=== PATIENT | female | born 1965 | race Caucasian/White ===

== ENCOUNTER 2019-12-17 15:37 | Emergency (ER) | payer SELFPAY ==
[2019-12-17 15:38] VITALS: BP 130/83; PULSE 65; RESP 16; O2SAT 99; BMI 22.4
--- NOTE | 2019-12-17 15:50 | ED_ITS ---
Documented by User: Malcolm Aranda DO 12/20/19 08:13 HPI - Chest Pain General: Chief Complaint: Chest Pain Stated Complaint: CP, TAKEN SISTERS MEDS FOR CP Time Seen by Provider: 12/17/19 15:43 History of Present Illness: HPI narrative: 54-year-old female presents emergency room with complaint of chest pain nonradiating she had some shortness of breath with it as well she is extremely anxious that she did take her sisters nitro based medicine from her description sounds like it was isosorbide mononitrate. She was unsure of the dose. She did not take any sublingual nitro. She is not previously had any short episodes of extreme chest pain this episode came on while at rest she had been having some palpitations and generalized discomfort and was set up to see a local nurse practitioner later this week. She denies any recent fever sweats chills nausea vomiting diarrhea cough or cold symptoms. MD complaint: chest heaviness and chest discomfort Onset (ago): hour(s) Timing of current episode: episodic Prior episodes: Yes Onset: during rest Pain location: left chest Pain radiation: none Severity: mild Quality: tightness, aching and heaviness Relieving factors: nothing Exacerbating factors: nothing Associated symptoms: Deny abdominal pain, dyspnea, fever(s), nausea or vomiting Review of Systems Const: Denies: fever, chills, body aches, change in appetite, fatigue or malaise ENMT: Denies: throat pain, ear pain, nasal discharge or nasal congestion Card: Reports: chest pain; Denies: edema, shortness of breath on exertion or shortness of breath when lying down Resp: Denies: shortness of breath, productive cough or non-productive cough GI: Denies: abdominal pain, nausea, vomiting, vomiting blood, coffee grounds in vomit, diarrhea, constipation, bloating, blood in stool or black tarry stool : Denies: flank pain, difficulty urinating, painful urination, urinary frequency or urinary urgency Skin/Breast: Denies: rash or itching PFSH ED PFSH: Medical History (Updated 12/19/19 @ 17:02 by Fabi Iverson MD) Family history of coronary artery disease occurring prior to 55 years of age Trigeminal neuralgia Family History (Updated 12/19/19 @ 13:23 by Fabi Iverson MD) Mother Stroke Father Stroke Sister CAD (coronary artery disease), Onset Age: 50 stent Social History Smoking and tobacco status: never smoked Physical Exam Const: COMMON NORMALS: no apparent distress GENERAL APPEARANCE: cooperative and comfortable ORIENTATION/CONSCIOUSNESS: Yes awake, Yes oriented to person, Yes oriented to place and Yes oriented to time HENMT: COMMON NORMALS: normocephalic, head/scalp atraumatic, hearing grossly normal bilaterally, external ears normal, EAC's normal, TM's normal bilaterally, nasal mucous membranes and turbinates normal, moist oral mucous membranes and oropharynx normal HEAD & SCALP: normocephalic and atraumatic NOSE: nasal mucous membranes and turbinates normal EXTERNAL EAR: Yes external ears normal EXTERNAL AUDITORY CANAL: EAC's normal TYMPANIC MEMBRANE: TM's normal bilaterally Eye: COMMON NORMALS: PERRL, EOMs intact bilaterally, conjunctivae normal and no scleral icterus CONJUNCTIVA: Yes conjunctivae normal PUPIL: Yes PERRL Neck/C-Spine: COMMON NORMALS: full ROM, no lymphadenopathy, supple and no JVD Lymph: LYMPHATIC: no lymphadenopathy noted and no lymphedema noted Resp: COMMON NORMALS: normal respiratory effort, no retractions, no use of accessory muscles and clear to auscultation bilaterally AUSCULTATION: clear to auscultation bilaterally Cardio: COMMON NORMALS: no JVD, regular rate, regular rhythm and no murmurs RATE: regular rate RHYTHM: regular rhythm GI: COMMON NORMALS: soft to palpation and no hepatosplenomegaly AUSCULTAT ION: Yes normoactive bowel sounds PALPATION: Yes soft, No tender, No guarding and Yes no hepatosplenomegaly Extremity: COMMON NORMALS: normal to inspection, normal capillary refill, no clubbing, cyanosis or edema, no calf tenderness and no pedal edema Neuro: SENSORIUM/ORIENTATION: Yes oriented to person, Yes oriented to place and Yes oriented to time Skin: COMMON NORMALS: no rashes or lesions noted GENERAL SKIN EXAM: no rashes or lesions noted Course Vital Signs: Vital signs: Vital Signs Pulse Rate 62 12/17/19 20:17 Respiratory Rate 18 12/17/19 20:17 Blood Pressure 106/70 12/17/19 20:17 Pulse Oximetry 98 12/17/19 20:17 MDM - Chest Pain MDM Narrative: Medical decision making narrative: Care transferred to Dr. Murphy at change of shift he will make final disposition Lab Data: Labs: Lab Results 12/17/19 12/17/19 12/17/19 Range/Units 16:06 16:06 16:06 WBC 4.8 (4.0-10.0) 10^3/ uL RBC 4.13 (4.1-5.3) 10^6/u L Hgb 12.8 (11.5-15.3) g/dL Hct 38.8 (37.0-47.0) % MCV 93.9 (81-99) fL MCH 31.0 (28.0-34.0) pg MCHC 33.0 (30.0-36.0) g/dL RDW 12.1 (12.1-15.1) % Plt Count 186 (130-400) 10^3/c mm MPV 11.3 H (7.4-10.4) fL Neut % (Auto) 51.6 % Lymph % (Auto) 39.3 % [place] % (Auto) 6.6 % Eos % (Auto) 1.7 % Baso % (Auto) 0.6 % Neut # (Auto) 2.5 (1.8-7.7) 10^3/u L Lymph # (Auto) 1.9 (0.8-4.8) 10^3/u L [place] # (Auto) 0.3 (0.2-0.9) 10^3/u L Eos # (Auto) 0.1 (0.0-0.8) 10^3/u L Baso # (Auto) 0.0 (0.0-0.1) 10^3/u L Nucleated RBC % (a uto) 0 % Nucleated RBCs # 0.0 /100WBC Sodium 141 (136-145) mmol/L Potassium 4.1 (3.5-5.1) mmol/L Chloride 104 (98-107) mmol/L Carbon Dioxide 24 (22-29) mmol/L Anion Gap 17.1 (5-19) BUN 10 (6-20) mg/dL Creatinine 0.7 (0.5-0.9) mg/dL GFR Calculation 86.6 L (90-130) mL/min Glucose 99 (65-115) mg/dL Calculated Osmolal ity 288 (285-295) mOsm/k g Calcium 10.0 (8.5-10.5) mg/dL Total Bilirubin 0.2 (0.15-1.2) mg/dL AST 18 (0-32) U/L ALT 12 (0-33) U/L Alkaline Phosphata se 50 (35-105) IU/L Troponin T Baselin e 6 (0-10) ng/mL Troponin T 120 Min [place] (0-10) ng/mL Delta Troponin T (0-10) ABS# Total Protein 6.7 (6.6-8.7) g/dL Albumin 4.2 (3.5-5.2) g/dL Globulin 2.5 (1.3-4.6) g/dL Lipase (13-60) U/L Urine Color (Yellow) Urine Appearance (CLEAR) Urine pH (5-7) Ur Specific Gravit y (1.005-1.030) Urine Protein (Negative) Urine Glucose (UA) (Normal) Urine Ketones (Negative) Urine Blood (Negative) Urine Nitrate (Negative) Urine Bilirubin (NEGATIVE) Urine Urobilinogen (Negative) mg/dL Ur Leukocyte [place] (Negative) 12/17/19 12/17/19 12/17/19 Range/Units 16:32 18:20 18:20 WBC (4.0-10.0) 10^3/ uL RBC (4.1-5.3) 10^6/u L Hgb (11.5-15.3) g/dL Hct (37.0-47.0) % MCV (81-99) fL MCH (28.0-34.0) pg MCHC (30.0-36.0) g/dL RDW (12.1-15.1) % Plt Count (130-400) 10^3/c mm MPV (7.4-10.4) fL Neut % (Auto) % Lymph % (Auto) % [place] % (Auto) % Eos % (Auto) % Baso % (Auto) % Neut # (Auto) (1.8-7.7) 10^3/u L Lymph # (Auto) (0.8-4.8) 10^3/u L [place] # (Auto) (0.2-0.9) 10^3/u L Eos # (Auto) (0.0-0.8) 10^3/u L Baso # (Auto) (0.0-0.1) 10^3/u L Nucleated RBC % (a uto) % Nucleated RBCs # /100WBC Sodium (136-145) mmol/L Potassium (3.5-5.1) mmol/L Chloride (98-107) mmol/L Carbon Dioxide (22-29) mmol/L Anion Gap (5-19) BUN (6-20) mg/dL Creatinine (0.5-0.9) mg/dL GFR Calculation (90-130) mL/min Glucose (65-115) mg/dL Calculated Osmolal ity (285-295) mOsm/k g Calcium (8.5-10.5) mg/dL Total Bilirubin (0.15-1.2) mg/dL AST (0-32) U/L ALT (0-33) U/L Alkaline Phosphata se (35-105) IU/L Troponin T Baselin e (0-10) ng/mL Troponin T 120 Min [place] 6.00 (0-10) ng/mL Delta Troponin T 0 (0-10) ABS# Total Protein (6.6-8.7) g/dL Albumin (3.5-5.2) g/dL Globulin (1.3-4.6) g/dL Lipase 30 (13-60) U/L Urine Color Yellow (Yellow) Urine Appearance Clear (CLEAR) Urine pH 7 (5-7) Ur Specific Gravit y 1.000 L (1.005-1.030) Urine Protein Neg (Negative) Urine Glucose (UA) Norm (Normal) Urine Ketones Negative (Negative) Urine Blood Neg (Negative) Urine Nitrate Negative (Negative) Urine Bilirubin Neg (NEGATIVE) Urine Urobilinogen Norm (Negative) mg/dL Ur Leukocyte [place] Negative (Negative) Discharge Plan Discharge Patient Disposition: Home, Self-Care Clinical Impression: Chest pain Qualifiers: Chest pain type: unspecified Qualified Code(s): R07.9 - Chest pain, unspecified Condition: Stable Prescriptions: No Action nitroglycerin 0.4 mg tablet, sublingual 0.4 mg SUBLINGUAL Q5M PRN (Reason: chest pain) Qty: 25 RF: 1 Multiple Vitamins Tablet 1 tab PO DAILY RF: 0 Aspir-81 81 mg Tablet,Delayed Release (Dr/Ec) 81 mg PO DAILY RF: 0 Widen-3 350 mg-235 mg- 90 mg-597 mg Capsule,Delayed Release(Dr/Ec) 1 cap PO DAILY RF: 0 [place] Treatment See Rx Instructions .ROUTE .COMPLEX RF: 0 grape seed extract 1 tab PO DAILY RF: 0 vitamin E 1 tab PO DAILY RF: 0 Discharge Orders: Discharge Order (Routine); Ordered 12/17/19 Ordered By: Renate Gupta Referrals: Fabi Iverson MD [Physician] - (Follow-up with Dr. Iverson on Tuesday as scheduled.) Discharge Diet: Advance as tolerated Discharge Activity: Increase activity as tolerated Patient Instructions: Chest Pain (ED) Activity Restrictions/Additional Instructions: Please return to the ER immediately for any of the signs or symptoms listed on your discharge instruction sheets, worsening/changing of your symptoms, you are not getting better as quickly as expected, or for ANY other cause or concerns. You have been offered further evaluation and care including admission to the hospital for stress testing but have declined. If your symptoms return or they change/worsen in any way you are more than welcome to return to the ER for recheck and further evaluation and care. Be certain to follow-up with Dr. Iverson on Tuesday for recheck. Again if your symptoms return or change in any way you are encouraged and welcomed to return to the ER for recheck. Discharge Date/Time: 12/17/19 20:18 Sign Out Sign Out Data: Patient Sign Out occurred on 12/17/19 at 18:08. Patient's care was discussed, and care was transferred from to Renate Gupta. Coding Level of Care Code ED Chair Mender for Chg Fwd Exam Comprehensive Documented by User: Renate Gupta 12/17/19 23:20 HPI - Chest Pain General: Chief Complaint: Chest Pain Stated Complaint: CP, TAKEN SISTERS MEDS FOR CP Time Seen by Provider: 03/30/20 15:43 PFSH ED PFSH: Medical History (Updated 12/19/19 @ 17:02 by Fabi Iverson MD) Family history of coronary artery disease occurring prior to 55 years of age Trigeminal neuralgia Family History (Updated 12/19/19 @ 13:23 by Fabi Iverson MD) Mother Stroke Father Stroke Sister CAD (coronary artery disease), Onset Age: 50 stent Social History Smoking and tobacco status: never smoked Course Vital Signs: Vital signs: Vital Signs Pulse Rate 62 12/17/19 20:17 Respiratory Rate 18 12/17/19 20:17 Blood Pressure 106/70 12/17/19 20:17 Pulse Oximetry 98 12/17/19 20:17 MDM - Chest Pain MDM Narrative: Medical decision making narrative: Care assumed by me at change of shift from Dr. Aranda. Please see his note for his history, physical exam and medical decision-making notes. Patient has 2 normal EKGs and 2 troponins which are as low as possible on our scale. Patient has had constant chest pain for over 6 hours which should rule out a cardiac case as a cause for her pain. The patient had a heart score of 3 which per the hospital chest pain pathway should be okay with discharge. Nonetheless I have offered admit her to the hospital for stress testing but she declines. She has an appointment with Dr. Iverson on Tuesday for evaluation and she plans to try to make that appointment. She understands that she is welcome to return here should she change her mind and she is leaving against my advice. Lab Data: Attestation: I reviewed the patient's lab results. Labs: Lab Results 12/17/19 12/17/19 12/17/19 Range/Units 16:06 16:06 16:06 WBC 4.8 (4.0-10.0) 10^3/ uL RBC 4.13 (4.1-5.3) 10^6/u L Hgb 12.8 (11.5-15.3) g/dL Hct 38.8 (37.0-47.0) % MCV 93.9 (81-99) fL MCH 31.0 (28.0-34.0) pg MCHC 33.0 (30.0-36.0) g/dL RDW 12.1 (12.1-15.1) % Plt Count 186 (130-400) 10^3/c mm MPV 11.3 H (7.4-10.4) fL Neut % (Auto) 51.6 % Lymph % (Auto) 39.3 % [place] % (Auto) 6.6 % Eos % (Auto) 1.7 % Baso % (Auto) 0.6 % Neut # (Auto) 2.5 (1.8-7.7) 10^3/u L Lymph # (Auto) 1.9 (0.8-4.8) 10^3/u L [place] # (Auto) 0.3 (0.2-0.9) 10^3/u L Eos # (Auto) 0.1 (0.0-0.8) 10^3/u L Baso # (Auto) 0.0 (0.0-0.1) 10^3/u L Nucleated RBC % (a uto) 0 % Nucleated RBCs # 0.0 /100WBC Sodium 141 (136-145) mmol/L Potassium 4.1 (3.5-5.1) mmol/L Chloride 104 (98-107) mmol/L Carbon Dioxide 24 (22-29) mmol/L Anion Gap 17.1 (5-19) BUN 10 (6-20) mg/dL Creatinine 0.7 (0.5-0.9) mg/dL GFR Calculation 86.6 L (90-130) mL/min Glucose 99 (65-115) mg/dL Calculated Osmolal ity 288 (285-295) mOsm/k g Calcium 10.0 (8.5-10.5) mg/dL Total Bilirubin 0.2 (0.15-1.2) mg/dL AST 18 (0-32) U/L ALT 12 (0-33) U/L Alkaline Phosphata se 50 (35-105) IU/L Troponin T Baselin e 6 (0-10) ng/mL Troponin T 120 Min [place] (0-10) ng/mL Delta Troponin T (0-10) ABS# Total Protein 6.7 (6.6-8.7) g/dL Albumin 4.2 (3.5-5.2) g/dL Globulin 2.5 (1.3-4.6) g/dL Lipase (13-60) U/L Urine Color (Yellow) Urine Appearance (CLEAR) Urine pH (5-7) Ur Specific Gravit y (1.005-1.030) Urine Protein (Negative) Urine Glucose (UA) (Normal) Urine Ketones (Negative) Urine Blood (Negative) Urine Nitrate (Negative) Urine Bilirubin (NEGATIVE) Urine Urobilinogen (Negative) mg/dL Ur Leukocyte [place] ase (Negative) 12/17/19 12/17/19 12/17/19 Range/Units 16:32 18:20 18:20 WBC (4.0-10.0) 10^3/ uL RBC (4.1-5.3) 10^6/u L Hgb (11.5-15.3) g/dL Hct (37.0-47.0) % MCV (81-99) fL MCH (28.0-34.0) pg MCHC (30.0-36.0) g/dL RDW (12.1-15.1) % Plt Count (130-400) 10^3/c mm MPV (7.4-10.4) fL Neut % (Auto) % Lymph % (Auto) % [place] % (Auto) % Eos % (Auto) % Baso % (Auto) % Neut # (Auto) (1.8-7.7) 10^3/u L Lymph # (Auto) (0.8-4.8) 10^3/u L [place] # (Auto) (0.2-0.9) 10^3/u L Eos # (Auto) (0.0-0.8) 10^3/u L Baso # (Auto) (0.0-0.1) 10^3/u L Nucleated RBC % (a uto) % Nucleated RBCs # /100WBC Sodium (136-145) mmol/L Potassium (3.5-5.1) mmol/L Chloride (98-107) mmol/L Carbon Dioxide (22-29) mmol/L Anion Gap (5-19) BUN (6-20) mg/dL Creatinine (0.5-0.9) mg/dL GFR Calculation (90-130) mL/min Glucose (65-115) mg/dL Calculated Osmolal ity (285-295) mOsm/k g Calcium (8.5-10.5) mg/dL Total Bilirubin (0.15-1.2) mg/dL AST (0-32) U/L ALT (0-33) U/L Alkaline Phosphata se (35-105) IU/L Troponin T Baselin e (0-10) ng/mL Troponin T 120 Min [place] 6.00 (0-10) ng/mL Delta Troponin T 0 (0-10) ABS# Total Protein (6.6-8.7) g/dL Albumin (3.5-5.2) g/dL Globulin (1.3-4.6) g/dL Lipase 30 (13-60) U/L Urine Color Yellow (Yellow) Urine Appearance Clear (CLEAR) Urine pH 7 (5-7) Ur Specific Gravit y 1.000 L (1.005-1.030) Urine Protein Neg (Negative) Urine Glucose (UA) Norm (Normal) Urine Ketones Negative (Negative) Urine Blood Neg (Negative) Urine Nitrate Negative (Negative) Urine Bilirubin Neg (NEGATIVE) Urine Urobilinogen Norm (Negative) mg/dL Ur Leukocyte Peace ase Negative (Negative) Imaging Data^: CXR: My impression: No acute cardiopulmonary findings. EKG Data^: EKG 1: Attestation: I personally reviewed and interpreted this EKG as follows: EKG interpretation date: 12/17/19 EKG interpretation time: 15:50 Interpretation: Sinus bradycardia at 57 beats a minute, no acute ST or T wave changes. EKG 2: EKG interpretation date: 12/17/19 EKG interpretation time: 17:32 Interpretation: Normal sinus rhythm at 57 beats a minute, no acute ST-T wave changes. Discharge Plan Discharge Patient Disposition: Home, Self-Care Clinical Impression: Chest pain Qualifiers: Chest pain type: unspecified Qualified Code(s): R07.9 - Chest pain, unspecified Condition: Stable Prescriptions: No Action nitroglycerin 0.4 mg tablet, sublingual 0.4 mg SUBLINGUAL Q5M PRN (Reason: chest pain) Qty: 25 RF: 1 Multiple Vitamins Tablet 1 tab PO DAILY RF: 0 Aspir-81 81 mg Tablet,Delayed Release (Dr/Ec) 81 mg PO DAILY RF: 0 Widen-3 350 mg-235 mg- 90 mg-597 mg Capsule,Delayed Release(Dr/Ec) 1 cap PO DAILY RF: 0 [place] Treatment See Rx Instructions .ROUTE .COMPLEX RF: 0 grape seed extract 1 tab PO DAILY RF: 0 vitamin E 1 tab PO DAILY RF: 0 Discharge Orders: Discharge Order (Routine); Ordered 12/17/19 Ordered By: Renate Gupta Referrals: Fabi Iverson MD [Physician] - (Follow-up with Dr. Iverson on Tuesday as scheduled.) Discharge Diet: Advance as tolerated Discharge Activity: Increase activity as tolerated Patient Instructions: Chest Pain (ED) Activity Restrictions/Additional Instructions: Please return to the ER immediately for any of the signs or symptoms listed on your discharge instruction sheets, worsening/changing of your symptoms, you are not getting better as quickly as expected, or for ANY other cause or concerns. You have been offered further evaluation and care including admission to the hospital for stress testing but have declined. If your symptoms return or they change/worsen in any way you are more than welcome to return to the ER for recheck and further evaluation and care. Be certain to follow-up with Dr. Iverson on Tuesday for recheck. Again if your symptoms return or change in any way you are encouraged and welcomed to return to the ER for recheck. Discharge Date/Time: 12/17/19 20:18 Sign Out Sign Out Data: Patient Sign Out occurred on 12/17/19 at 18:08. Patient's care was discussed, and care was transferred from to Renate Gupta. Coding Level of Care Code ED Chair Mender for [place] Fwd Exam Comprehensive
--- NOTE | 2019-12-17 15:59 | ECG_ITS ---
Measurements Intervals [place] Rate: 57 P: 23 WI: 125 QRS: 65 QRSD: 90 T: 44 QT: 379 QTc: 372 SINUS BRADYCARDIA NONSPECIFIC T-WAVE ABNORMALITY Compared to ECG 01/28/2017 19:54:25 Sinus rhythm no longer present Sinus arrhythmia no longer present Short [place] interval no longer present T-wave abnormality still present Electronically Signed On 12-17-2019 18:13:19 CDT by Fabi Iverson M.D. [id number] f
--- NOTE | 2019-12-17 16:00 | XR_ITS ---
WS: [id number] PORTABLE CHEST HISTORY: dyspnea/cough COMPARISON: 05/07/2018 Lungs are clear and well expanded. No pleural effusion or pneumothorax. Cardiac size: Normal. Mediastinum/Aorta: Normal mediastinum. No osseous abnormality seen. XR/XR chest 1V portable [id number] IMPRESSION: Unremarkable portable chest.
[2019-12-17 16:11] LABS: Basophils % 0.6 %; Eosinophils # 0.1 10^3/uL (0.0-0.8); Eosinophils % 1.7 %; Hematocrit 38.8 % (37.0-47.0); Hemoglobin 12.8 g/dL (11.5-15.3); Lymphocytes # 1.9 10^3/uL (0.8-4.8); Lymphocytes % 39.3 %; Mean Corpuscular Volume 93.9 fL (81-99); Mean Platelet Volume 11.3 fL (7.4-10.4); Monocytes # 0.3 10^3/uL (0.2-0.9); Monocytes % 6.6 %; Neutrophils # 2.5 10^3/uL (1.8-7.7); Neutrophils % 51.6 %; Nucleated Red Blood Cells % 0 %; Platelet Count 186 10^3/cmm (130-400); Red Blood Count 4.13 10^6/uL (4.1-5.3); Red Cell Distribution Width 12.1 % (12.1-15.1); White Blood Count 4.8 10^3/uL (4.0-10.0)
--- NOTE | 2019-12-17 16:19 | PC.PHAR ---
pt states she takes alot of herbal supplements and essential oils but cant remember all of the names
[2019-12-17 16:29] LABS: Alanine Aminotransferase 12 U/L (0-33); Albumin Level 4.2 g/dL (3.5-5.2); Alkaline Phosphatase 50 IU/L (35-105); Anion Gap 17.1 (5-19); Aspartate Amino Transferase 18 U/L (0-32); Blood Urea Nitrogen 10 mg/dL (6-20); Carbon Dioxide 24 mmol/L (22-29); Chloride 104 mmol/L (98-107); Globulin 2.5 g/dL (1.3-4.6); Glomerular Filtration Rate 86.6 mL/min (90-130); Glucose 99 mg/dL (65-115); Osmolality Calculated 288 mOsm/kg (285-295); Potassium 4.1 mmol/L (3.5-5.1); Sodium 141 mmol/L (136-145); Total Bilirubin 0.2 mg/dL (0.15-1.2); Total Protein 6.7 g/dL (6.6-8.7); Troponin(5th) Baseline 6 ng/mL (0-10)
[2019-12-17 16:44] LABS: Add Urine Microscopic? NO
[2019-12-17 16:56] LABS: Urine Appearance Clear (CLEAR); Urine Color Yellow (Yellow); pH Urine 7 (5-7)
[2019-12-17 16:57] LABS: Bilirubin Urine Neg (NEGATIVE); Blood Urine Neg (Negative); Glucose Urine UA Norm (Normal); Ketones Urine Negative (Negative); Leukocyte Esterase Urine Negative (Negative); Nitrate Urine Negative (Negative); Protein Urine Neg (Negative); Urobilinogen Urine Norm (Negative)
--- NOTE | 2019-12-17 17:59 | ECG_ITS ---
Measurements Intervals [place] Rate: 57 P: 8 IL: 132 QRS: 68 QRSD: 89 T: 66 QT: 430 QTc: 420 SINUS BRADYCARDIA NONSPECIFIC T-WAVE ABNORMALITY Compared to ECG 01/28/2017 19:54:25 Sinus rhythm no longer present Sinus arrhythmia no longer present Short [place] interval no longer present T-wave abnormality still present Electronically Signed On 12-17-2019 18:29:43 CDT by Fabi Iverson M.D. [email or web address] f
[2019-12-17 18:15] VITALS: BP 130/71; PULSE 65; RESP 16; O2SAT 100
[2019-12-17 18:57] LABS: Troponin 5 2HR Delta 0 ABS# (0-10)
[2019-12-17 19:16] LABS: Lipase 30 U/L (13-60)
[2019-12-17 20:17] VITALS: BP 106/70; PULSE 62; RESP 18; O2SAT 98
--- NOTE | 2019-12-18 11:16 | DCPLANNER ---
Patient is to follow up with [facility], case loader operator called [facility] to confirm that patient had an appointment scheduled.
--- NOTE | 2019-12-19 13:48 | DCPLANNER ---
Patient had an appointment scheduled for 12.19.19 with [facility], with Dr. Ivesron. Patient did attend the appointment.
== END 2019-12-17 20:18 | disposition home or self-care (01) ==
PROVIDERS: Family Medicine; Emergency Provider Emergency Medicine
DX: R07.9 Chest pain, unspecified (principal)
CPT/HCPCS: 12345; 36415; 71045; 80053; 81003; 83690; 84484; 85025; 93005; 99281; 99283

== ENCOUNTER 2020-09-19 14:06 | Emergency (ER) | payer OTHER, SELFPAY ==
[2020-09-19 14:59] VITALS: PULSE 110; RESP 18; TEMP 36.9; O2SAT 97; BMI 22.4
[2020-09-19 15:06] VITALS: BP 107/92
[2020-09-19 15:10] VITALS: O2SAT 97
--- NOTE | 2020-09-19 15:34 | XR_ITS ---
WS: [id number] Exam: XR chest 2V* [id number] Date/Time of Exam: 09/19/2020 3:45 PM Reason For Exam: shortness of breath Comparison 12/17/2019. Findings: The lungs are clear and fully expanded. Costophrenic angles are sharp. No infiltrates. Bronchovascula r relief appears normal. Cardiac silhouette is unremarkable. Bony elements are intact. XR/XR chest 2V* [id number] IMPRESSION: Unremarkable chest radiograph.
--- NOTE | 2020-09-19 15:55 | ED_ITS ---
HPI - COVID General: Chief Complaint: COVID symptoms Stated Complaint: COVID SYMPTOMS Time Seen by Provider: 09/19/20 14:59 Source: patient Mode of arrival: ambulatory Triage information: Has fever, cough or shortness of breath . No known COVID + exposure last 14 days History of Present Illness: HPI Narrative: 55-year-old female presents to the emergency room with chief complaint of shortness of breath and difficulty breathing that is been ongoing for the last 3 to 4 days. Patient reports recent sick ill contacts with COVID-19. Patient reports she has had some mild diarrhea over the last couple days with a reduced appetite and oral intake. Patient also reports low-grade fevers as well. MD complaint: known COVID positive Prior covid testing: no COVID 19 common symptoms: positive fever(s), chills, cough, productive cough, dyspnea, body aches, nausea and diarrhea; negative headache(s) COVID 19 other sytmptoms: negative chest pain COVID Results: Nasal/Oral Coronavirus 2019 PCR Pending 09/19/20 16:40 09/19/20 Review of Systems General: Reports: 10 or more systems reviewed and unremarkable except in HPI and below Const: Reports: fever(s), chills, body aches and change in appetite Eyes: Denies: change in vision or blurry vision Card: Denies: chest pain or palpitations Resp: Reports: dyspnea and productive cough GI: Reports: nausea and diarrhea : Denies: flank pain Musc: Denies: extremity pain or extremity swelling Skin/Breast: Denies: rash or pruritus Neuro: Denies: headache(s) Psych: Denies: anxiety or depression Lew/Lymph: Denies: easy bleeding All/Imm: Denies: urticaria, throat swelling or facial swelling PFS ED PFSH: Medical History (Updated 09/19/20 @ 16:38 by Anthony Galvan) Family history of coronary artery disease occurring prior to 55 years of age Trigeminal neuralgia Family History (Updated 12/19/19 @ 13:23 by Fabi Iverson MD) Mother Stroke Father Stroke Sister CAD (coronary artery disease), Onset Age: 50 stent Social History (Updated 09/19/20 @ 15:07 by Ricardo Sawyer RN) Smoking and tobacco status: never smoked Alcohol intake: never Physical Exam Narrative: EXAM NARRATIVE: Patient appears nontoxic in no acute distress alert and oriented x3 GCS of 15 slightly tachycardic pulse rate is 110 no tachypnea appreciated no wheezing crackles rales or rhonchi noted and abdomen is soft nontender, nondistended Const: COMMON NORMALS: no acute distress, patient oriented x3 and healthy appearing HENMT: COMMON NORMALS: normocephalic and atraumatic HEAD & SCALP: normocephalic and atraumatic Eye: COMMON NORMALS: Equal, round and reactive pupils present and EOMs intact bilaterally PUPIL: Yes Equal, round and reactive pupils present Neck/C-Spine: COMMON NORMALS: full ROM, supple and no JVD Lymph: LYMPHATIC: no lymphadenopathy noted Chest: COMMONS NORMALS: normal inspection of the chest and normal palpation of entire chest wall Resp: COMMON NORMALS: normal respiratory effort, No retractions and clear to auscultation bilaterally EFFORT & INSPECTION: Yes able to speak in complete sentences and Yes symmetric chest movement AUSCULTATION: clear to auscultation bilaterally Cardio: COMMON NORMALS: no JVD and regular rhythm RATE: tachycardic RHYTHM: regular rhythm GI: COMMON NORMALS: Normal to inspection, nondistended, normoactive bowel sounds present, Soft to palpation and non-tender INSPECTION: Yes normal to inspection PALPATION: Yes Soft to palpation : COMMON NORMALS: Yes no CVA tenderness BLADDER/KIDNEY EXAM: Yes no CVA tenderness Back/Pelvis: COMMON NORMALS: no CVA tenderness Extremity: COMMON NORMALS: normal to inspection and full ROM Neuro: COMMON NORMALS: patient oriented x3, CN's II-XII intact bilaterally, moves all extremities and no focal motor deficits Psych: COMMON NORMALS: mental status grossly normal, Normal thought process present, cooperative and normal affect THOUGHT PROCESS: Normal thought process present Skin: COMMON NORMALS: no rashes or lesions noted GENERAL SKIN EXAM: no rashes or lesions noted Course Vital Signs: Vital signs: Vital Signs Temperature 98.5 F 09/19/20 14:59 Pulse Rate 106 H 09/19/20 17:45 Respiratory Rate 17 09/19/20 17:45 Blood Pressure 107/92 09/19/20 15:06 Pulse Oximetry 98 09/19/20 17:45 MDM - COVID MDM Narrative: Medical decision making narrative: Due to patient symptom condition chest x-ray will be obtained as well as a Covid swab. Patient appears asymptomatic at this time except for some mild tachycardia her current rates of 110 she reports no chest pain or palpitations with her shortness of breath. Patient has no noted history of any cardiac issues or lung issues at this time will be outpatient Covid testing will continue to follow with anticipation of discharge home. Remainder lab work and imaging came back concerning for potential Covid 19 the patient was placed on medication for her symptoms advised to follow-up with primary care doctor in 3 to 5 days for further assessment management and instructed to return in the interim if any of her symptoms persist or worsen. The patient was discharged with a pulse oximeter which she was advised to return if her oxygen saturations remained less than 90% on room air. Differential Diagnosis: Differential diagnosis: Likely COVID 19, other viral infection and pneumonia Lab Data: Attestation: I reviewed the patient's lab results. Labs: Lab Results 09/19/20 09/19/20 Range/Units 16:40 16:40 WBC 2.9 L (4.0-10.0) 10^3/ uL RBC 4.74 (4.1-5.3) 10^6/u L Hgb 14.0 (11.5-15.3) g/dL Hct 42.6 (37.0-47.0) % MCV 89.9 (81-99) fL MCH 29.5 (28.0-34.0) pg MCHC 32.9 (30.0-36.0) g/dL RDW 13.1 (12.1-15.1) % Plt Count 146 (130-400) 10^3/c mm MPV 11.5 H (7.4-10.4) fL Neut % (Auto) 68.2 % Lymph % (Auto) 24.3 % [place] % (Auto) 6.9 % Eos % (Auto) 0.0 % Baso % (Auto) 0.3 % Neut # (Auto) 1.96 (1.8-7.7) 10^3/u L Lymph # (Auto) 0.7 L (0.8-4.8) 10^3/u L [place] # (Auto) 0.2 (0.2-0.9) 10^3/u L Eos # (Auto) 0.0 (0.0-0.8) 10^3/u L Baso # (Auto) 0.0 (0.0-0.1) 10^3/u L Nucleated RBC % (a uto) 0 % Nucleated RBCs # 0.0 /100WBC Sodium 141 (136-145) mmol/L Potassium 3.9 (3.5-5.1) mmol/L Chloride 104 (98-107) mmol/L Carbon Dioxide 24 (22-29) mmol/L Anion Gap 16.9 (5-19) BUN 13 (6-20) mg/dL Creatinine 0.7 (0.5-0.9) mg/dL GFR Calculation 86.2 L (90-130) mL/min Glucose 104 (65-115) mg/dL Calculated Osmolal ity 292 (285-295) mOsm/k g Calcium 8.7 (8.5-10.5) mg/dL Total Bilirubin 0.3 (0.15-1.2) mg/dL AST 27 (0-32) U/L ALT 25 (0-33) U/L Alkaline Phosphata se 80 (35-105) IU/L Lactate Dehydrogen ase 174 (135-214) U/L C-Reactive Protein 16.1 H (0.0-4.9) mg/L Total Protein 6.8 (6.6-8.7) g/dL Albumin 3.9 (3.5-5.2) g/dL Globulin 2.9 (1.3-4.6) g/dL COVID Results: Nasal/Oral Coronavirus 2019 PCR Pending 09/19/20 16:40 09/19/20 Discharge Plan Discharge Patient Disposition: Home Clinical Impression: Suspected severe acute respiratory syndrome coronavirus 2 (SARS-CoV-2) infection Condition: Stable Prescriptions: New prednisone 20 mg tablet 20 mg PO BID 7 Days Qty: 14 RF: 0 Ventolin HFA 90 mcg/actuation HFA aerosol inhaler 2 inh inhalation Q6H PRN (Reason: shortness of breath or wheezing) Qty: 8 RF: 0 Zofran 4 mg tablet 4 mg PO TID PRN (Reason: nausea and vomiting) 2 Days Qty: 10 RF: 0 No Action nitroglycerin 0.4 mg tablet, sublingual 0.4 mg SUBLINGUAL Q5M PRN (Reason: chest pain) Qty: 25 RF: 1 Multiple Vitamins Tablet 1 tab PO DAILY RF: 0 Aspir-81 81 mg Tablet,Delayed Release (Dr/Ec) 81 mg PO DAILY RF: 0 [place]-3 350 mg-235 mg- 90 mg-597 mg Capsule,Delayed Release(Dr/Ec) 1 cap PO DAILY RF: 0 [place] Treatment See Rx Instructions .ROUTE .COMPLEX RF: 0 grape seed extract 1 tab PO DAILY RF: 0 vitamin E 1 tab PO DAILY RF: 0 Discharge Orders: Discharge ED (Routine); Ordered 09/19/20 Ordered By: Anthony Galvan Patient Instructions: Viral Syndrome (ED) Activity Restrictions/Additional Instructions: Please follow-up with your primary care doctor in 3 to 5 days take medication as prescribed and return in the interim if any of her symptoms persist or worse. At this time it is advised you to self quarantine at home until the results of your official Covid swabs are resulted. Coding Level of Care Code ED [employer] for Kirsty Chow Exam Comprehensive
[2020-09-19 16:53] LABS: Basophils % 0.3 %; Hematocrit 42.6 % (37.0-47.0); Lymphocytes # 0.7 10^3/uL (0.8-4.8); Lymphocytes % 24.3 %; Mean Corpuscular HGB Conc 32.9 g/dL (30.0-36.0); Mean Corpuscular Hemoglobin 29.5 pg (28.0-34.0); Mean Corpuscular Volume 89.9 fL (81-99); Mean Platelet Volume 11.5 fL (7.4-10.4); Monocytes # 0.2 10^3/uL (0.2-0.9); Monocytes % 6.9 %; Neutrophils # 1.96 10^3/uL (1.8-7.7); Neutrophils % 68.2 %; Nucleated Red Blood Cells % 0 %; Platelet Count 146 10^3/cmm (130-400); Red Blood Count 4.74 10^6/uL (4.1-5.3); Red Cell Distribution Width 13.1 % (12.1-15.1); White Blood Count 2.9 10^3/uL (4.0-10.0)
[2020-09-19 17:13] LABS: Alanine Aminotransferase 25 U/L (0-33); Albumin Level 3.9 g/dL (3.5-5.2); Alkaline Phosphatase 80 IU/L (35-105); Anion Gap 16.9 (5-19); Aspartate Amino Transferase 27 U/L (0-32); Blood Urea Nitrogen 13 mg/dL (6-20); C Reactive Protein 16.1 mg/L (0.0-4.9); Calcium 8.7 mg/dL (8.5-10.5); Carbon Dioxide 24 mmol/L (22-29); Chloride 104 mmol/L (98-107); Globulin 2.9 g/dL (1.3-4.6); Glomerular Filtration Rate 86.2 mL/min (90-130); Glucose 104 mg/dL (65-115); Lactate Dehydrogenase 174 U/L (135-214); Osmolality Calculated 292 mOsm/kg (285-295); Potassium 3.9 mmol/L (3.5-5.1); Sodium 141 mmol/L (136-145); Total Bilirubin 0.3 mg/dL (0.15-1.2); Total Protein 6.8 g/dL (6.6-8.7)
[2020-09-19 17:45] VITALS: PULSE 106; RESP 17; O2SAT 98
[2020-09-21 12:32] LABS: Quest SARS-CoV-2 RNA DETECTED (NOT DETECTED)
--- NOTE | 2020-09-21 15:46 | PC.NURSE ---
Patient called to be notified of COVID results at this time but no answer. Message left.
--- NOTE | 2020-09-21 15:49 | PC.NURSE ---
Patient returned phone call and was notified of COVID results.
== END 2020-09-19 17:46 | disposition home or self-care (01) ==
PROVIDERS: Emergency Provider Emergency Medicine
DX: U07.1 COVID-19 (principal); Z79.82 Long term (current) use of aspirin
CPT/HCPCS: 12345; 71046; 80053; 83615; 85025; 86140; 87635; 99282; 99283

== ENCOUNTER 2020-09-29 16:50 | Emergency (ER) | payer SELFPAY ==
[2020-09-29 17:06] VITALS: BP 119/86; PULSE 88; RESP 14; TEMP 36.8; O2SAT 98; BMI 22.4
--- NOTE | 2020-09-29 17:15 | ECG_ITS ---
[facility] Test Date: 2020-09-29 Pat Name: Glendy Cruz Department: Room: Gender: Female Lidar Analyst: SUJEY : 1965 Requested By: Malcolm Bolton Order Number: [id number] Wicho MD: Fabi Iverson M.D. Measurements Intervals [place] Rate: 85 P: 73 LA: 114 QRS: 60 QRSD: 85 T: 47 QT: 341 QTc: 406 Interpretive Statements SINUS RHYTHM WITH SHORT LA INTERVAL NONSPECIFIC ST & T-WAVE ABNORMALITY Compared to ECG 12/17/2019 17:32:15 Short LA interval now present Sinus bradycardia no longer present T-wave abnormality still present Electronically Signed On 09-29-2020 20:16:44 RESISTANCE BRAZER by Fabi Iverson M.D. [id number]
--- NOTE | 2020-09-29 17:15 | XRR_ITS ---
PROCEDURE INFORMATION: Exam: XR Chest, 1 View Exam date and time: 09/29/2020 5:34 PM Age: 55 years old Clinical indication: Chest pain; Other: Tightness; Patient HX: Covid + TECHNIQUE: Imaging protocol: XR of the chest Views: 1 view. COMPARISON: CR XR chest 2V* [id number] 09/19/2020 3:53 PM FINDINGS: Lungs: Unremarkable. No consolidation. Pleural space: Unremarkable. No pleural effusion. No pneumothorax. Heart/Mediastinum: Unremarkable. No cardiomegaly. Bones/joints: Unremarkable. XR/XR chest 1V portable [id number] IMPRESSION: No acute findings.
[2020-09-29 17:36] VITALS: BP 112/84; PULSE 72; RESP 16; O2SAT 97
--- NOTE | 2020-09-29 17:42 | W.ED.CHESTPA ---
Documented by User: Malcolm Aranda DO 09/30/20 06:49 HPI - Chest Pain General: Chief Complaint: Chest Pain Stated Complaint: COVID+, CP/TIGHTNESS Time Seen by Provider: 09/29/20 17:15 History of Present Illness: HPI narrative: 55-year-old female comes in complaining of chest discomfort. 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 she reported symptoms that began around 1224. She still has a cough although is nonproductive generalized myalgias no fever. She has still been using her albuterol inhaler with some relief of her symptoms. She still has some chest tightness. She denies having a history of cardiac disease however in her medication list she has clopidogrel and a prescription for sublingual nitroglycerin. Pain did not radiate into the neck or the arms she was short of breath with it but not diaphoretic or nauseous. MD complaint: chest heaviness Pertinent past history: coronary artery disease (???) Onset (ago): day(s) Timing of current episode: episodic Prior episodes: Yes Onset: during rest Pain location: substernal Pain radiation: none Severity: moderate Relieving factors: rest Exacerbating factors: exertion Associated symptoms: Reports dyspnea, nausea and sense of impending doom; Deny abdominal pain, diaphoresis, fever(s), leg edema, palpitations, syncope or vomiting Treatment prior to arrival: none Review of Systems Const: Denies: fever(s) or diaphoresis ENMT: Denies: throat pain, ear or mastoid pain, nasal discharge or nasal congestion Card: Denies: palpitations or syncope Resp: Reports: dyspnea GI: Reports: nausea; Denies: abdominal pain or vomiting : Denies: flank pain, difficulty voiding, dysuria, urinary frequency or urinary urgency Skin/Breast: Denies: rash or pruritus PFSH ED PFSH: Medical History Family history of coronary artery disease occurring prior to 55 years of age Trigeminal neuralgia Family History Mother Stroke Father Stroke Sister CAD (coronary artery disease), Onset Age: 50 stent Social History (Reviewed 09/29/20 @ 17:49 by JUAN MIGUEL Betancourt Smoking and tobacco status: never smoked Alcohol intake: never Physical Exam Const: COMMON NORMALS: no acute distress GENERAL APPEARANCE: cooperative and comfortable ORIENTATION/CONSCIOUSNESS: Yes awake, Yes oriented to person, Yes oriented to place and Yes oriented to time HENMT: COMMON NORMALS: normocephalic, atraumatic and hearing grossly normal bilaterally HEAD & SCALP: normocephalic and atraumatic Neck/C-Spine: COMMON NORMALS: no JVD Resp: COMMON NORMALS: normal respiratory effort, No retractions, No use of accessory muscles and clear to auscultation bilaterally AUSCULTATION: clear to auscultation bilaterally Cardio: COMMON NORMALS: no JVD, regular rate, regular rhythm and No murmurs present (Cardio) RATE: regular rate RHYTHM: regular rhythm GI: COMMON NORMALS: Soft to palpation and No hepatosplenomegaly present AUSCULTATION: Yes normoactive bowel sounds PALPATION: Yes Soft to palpation, No Tenderness to palpation present (GI), No Guarding due to palpation present (GI) and Yes No hepatosplenomegaly present Extremity: COMMON NORMALS: normal to inspection, capillary refill normal, no clubbing, cyanosis or edema, no calf tenderness and no pedal edema Neuro: SENSORIUM/ORIENTATION: Yes oriented to person, Yes oriented to place and Yes oriented to time Skin: COMMON NORMALS: no rashes or lesions noted GENERAL SKIN EXAM: no rashes or lesions noted Course Vital Signs: Vital signs: Vital Signs Temperature 98.2 F 09/29/20 17:06 Pulse Rate 73 09/29/20 19:50 Respiratory Rate 14 09/29/20 19:50 Blood Pressure 118/91 09/29/20 19:50 Pulse Oximetry 97 09/29/20 19:50 MDM - Chest Pain MDM Narrative: Medical decision making narrative: Care turned over to Dr. Quinn at change of shift Lab Data: Labs: Lab Results 09/29/20 09/29/20 09/29/20 Range/Units 17:46 17:46 17:46 WBC 6.2 (4.0-10.0) 10^3/ uL RBC 4.38 (4.1-5.3) 10^6/u L Hgb 12.9 (11.5-15.3) g/dL Hct 39.8 (37.0-47.0) % MCV 90.9 (81-99) fL MCH 29.5 (28.0-34.0) pg MCHC 32.4 (30.0-36.0) g/dL RDW 13.6 (12.1-15.1) % Plt Count 312 (130-400) 10^3/c mm MPV 10.0 (7.4-10.4) fL Neut % (Auto) 54.6 % Lymph % (Auto) 34.0 % [place] % (Auto) 8.8 % Eos % (Auto) 1.3 % Baso % (Auto) 0.5 % Neut # (Auto) 3.36 (1.8-7.7) 10^3/u L Lymph # (Auto) 2.1 (0.8-4.8) 10^3/u L [place] # (Auto) 0.5 (0.2-0.9) 10^3/u L Eos # (Auto) 0.1 (0.0-0.8) 10^3/u L Baso # (Auto) 0.0 (0.0-0.1) 10^3/u L Nucleated RBC % (a uto) 0 % Nucleated RBCs # 0.0 /100WBC D-Dimer 1.99 H (0-0.59) ug/mIFE U Sodium 136 (136-145) mmol/L Potassium 4.4 (3.5-5.1) mmol/L Chloride 103 (98-107) mmol/L Carbon Dioxide 24 (22-29) mmol/L Anion Gap 13.4 (5-19) BUN 9 (6-20) mg/dL Creatinine 0.6 (0.5-0.9) mg/dL GFR Calculation 103.0 (90-130) mL/min Glucose 104 (65-115) mg/dL Calculated Osmolal ity 281 L (285-295) mOsm/k g Calcium 8.9 (8.5-10.5) mg/dL Total Bilirubin 0.2 (0.15-1.2) mg/dL AST 21 (0-32) U/L ALT 39 H (0-33) U/L Alkaline Phosphata se 63 (35-105) IU/L Troponin T Baselin e (0-10) ng/L Total Protein 5.8 L (6.6-8.7) g/dL Albumin 3.7 (3.5-5.2) g/dL Globulin 2.1 (1.3-4.6) g/dL Lipase (13-60) U/L 09/29/20 09/29/20 Range/Units 17:46 17:46 WBC (4.0-10.0) 10^3/ uL RBC (4.1-5.3) 10^6/u L Hgb (11.5-15.3) g/dL Hct (37.0-47.0) % MCV (81-99) fL MCH (28.0-34.0) pg MCHC (30.0-36.0) g/dL RDW (12.1-15.1) % Plt Count (130-400) 10^3/c mm MPV (7.4-10.4) fL Neut % (Auto) % Lymph % (Auto) % [place] % (Auto) % Eos % (Auto) % Baso % (Auto) % Neut # (Auto) (1.8-7.7) 10^3/u L Lymph # (Auto) (0.8-4.8) 10^3/u L [place] # (Auto) (0.2-0.9) 10^3/u L Eos # (Auto) (0.0-0.8) 10^3/u L Baso # (Auto) (0.0-0.1) 10^3/u L Nucleated RBC % (a uto) % Nucleated RBCs # /100WBC D-Dimer (0-0.59) ug/mIFE U Sodium (136-145) mmol/L Potassium (3.5-5.1) mmol/L Chloride (98-107) mmol/L Carbon Dioxide (22-29) mmol/L Anion Gap (5-19) BUN (6-20) mg/dL Creatinine (0.5-0.9) mg/dL GFR Calculation (90-130) mL/min Glucose (65-115) mg/dL Calculated Osmolal ity (285-295) mOsm/k g Calcium (8.5-10.5) mg/dL Total Bilirubin (0.15-1.2) mg/dL AST (0-32) U/L ALT (0-33) U/L Alkaline Phosphata se (35-105) IU/L Troponin T Baselin e 6 (0-10) ng/L Total Protein (6.6-8.7) g/dL Albumin (3.5-5.2) g/dL Globulin (1.3-4.6) g/dL Lipase 70 H (13-60) U/L Discharge Plan Discharge Patient Disposition: Home Clinical Impression: Atypical chest pain, COVID-19 Condition: Stable Prescriptions: No Action nitroglycerin 0.4 mg tablet, sublingual 0.4 mg SUBLINGUAL Q5M PRN (Reason: chest pain) Qty: 25 RF: 1 multivitamin [Multiple Vitamins] Tablet 1 tab PO DAILY@0900 RF: 0 [place]-3 350 mg-235 mg- 90 mg-597 mg Capsule,Delayed Release(Dr/Ec) 1 cap PO DAILY@0900 RF: 0 grape seed extract 1 tab PO DAILY@0900 RF: 0 vitamin E 1 tab PO DAILY@0900 RF: 0 albuterol sulfate [Ventolin HFA] 90 mcg/actuation HFA aerosol inhaler 2 inh inhalation Q6H PRN (Reason: shortness of breath or wheezing) Qty: 8 RF: 0 clopidogrel 75 mg tablet 75 mg PO DAILY@0900 RF: 0 Aspir-81 81 mg Tablet,Delayed Release (Dr/Ec) 81 mg PO DAILY@0900 RF: 0 Vitamin C 1 tab PO DAILY@0900 RF: 0 Vitamin D3 1 tab PO DAILY@0900 RF: 0 zinc 1 tab PO DAILY@0900 RF: 0 Discharge Orders: Discharge ED (Routine); Ordered 09/29/20 Ordered By: Elvin Quinn Discharge Diet: Advance as tolerated Discharge Activity: Resume usual activity Patient Instructions: Chest Pain (ED) Coding Level of Care Code ED Fender Mechanic Apprentice for Chg Fwd Exam Comprehensive Documented by User: Elvin Quinn MD 09/29/20 19:56 HPI - Chest Pain General: Chief Complaint: Chest Pain Stated Complaint: COVID+, CP/TIGHTNESS Time Seen by Provider: 09/29/20 17:15 PFSH ED PFSH: Medical History Family history of coronary artery disease occurring prior to 55 years of age Trigeminal neuralgia Family History Mother Stroke Father Stroke Sister CAD (coronary artery disease), Onset Age: 50 stent Social History Smoking and tobacco status: never smoked Alcohol intake: never Course Vital Signs: Vital signs: Vital Signs Temperature 98.2 F 09/29/20 17:06 Pulse Rate 73 09/29/20 19:50 Respiratory Rate 14 09/29/20 19:50 Blood Pressure 118/91 09/29/20 19:50 Pulse Oximetry 97 09/29/20 19:50 MDM - Chest Pain MDM Narrative: Medical decision making narrative: Patient presents here with chest pain is atypical in nature likely due to her COVID-19 CT showed no signs of pulmonary embolism. Patient's troponins are negative. Her EKGs here are normal. She is stable for discharge is to follow-up with her PCP and return if worsening. She understands agrees to plan. Lab Data: Labs: Lab Results 09/29/20 09/29/20 09/29/20 Range/Units 17:46 17:46 17:46 WBC 6.2 (4.0-10.0) 10^3/ uL RBC 4.38 (4.1-5.3) 10^6/u L Hgb 12.9 (11.5-15.3) g/dL Hct 39.8 (37.0-47.0) % MCV 90.9 (81-99) fL MCH 29.5 (28.0-34.0) pg MCHC 32.4 (30.0-36.0) g/dL RDW 13.6 (12.1-15.1) % Plt Count 312 (130-400) 10^3/c mm MPV 10.0 (7.4-10.4) fL Neut % (Auto) 54.6 % Lymph % (Auto) 34.0 % [place] % (Auto) 8.8 % Eos % (Auto) 1.3 % Baso % (Auto) 0.5 % Neut # (Auto) 3.36 (1.8-7.7) 10^3/u L Lymph # (Auto) 2.1 (0.8-4.8) 10^3/u L [place] # (Auto) 0.5 (0.2-0.9) 10^3/u L Eos # (Auto) 0.1 (0.0-0.8) 10^3/u L Baso # (Auto) 0.0 (0.0-0.1) 10^3/u L Nucleated RBC % (a uto) 0 % Nucleated RBCs # 0.0 /100WBC D-Dimer 1.99 H (0-0.59) ug/mIFE U Sodium 136 (136-145) mmol/L Potassium 4.4 (3.5-5.1) mmol/L Chloride 103 (98-107) mmol/L Carbon Dioxide 24 (22-29) mmol/L Anion Gap 13.4 (5-19) BUN 9 (6-20) mg/dL Creatinine 0.6 (0.5-0.9) mg/dL GFR Calculation 103.0 (90-130) mL/min Glucose 104 (65-115) mg/dL Calculated Osmolal ity 281 L (285-295) mOsm/k g Calcium 8.9 (8.5-10.5) mg/dL Total Bilirubin 0.2 (0.15-1.2) mg/dL AST 21 (0-32) U/L ALT 39 H (0-33) U/L Alkaline Phosphata se 63 (35-105) IU/L Troponin T Baselin e (0-10) ng/L Total Protein 5.8 L (6.6-8.7) g/dL Albumin 3.7 (3.5-5.2) g/dL Globulin 2.1 (1.3-4.6) g/dL Lipase (13-60) U/L 09/29/20 09/29/20 Range/Units 17:46 17:46 WBC (4.0-10.0) 10^3/ uL RBC (4.1-5.3) 10^6/u L Hgb (11.5-15.3) g/dL Hct (37.0-47.0) % MCV (81-99) fL MCH (28.0-34.0) pg MCHC (30.0-36.0) g/dL RDW (12.1-15.1) % Plt Count (130-400) 10^3/c mm MPV (7.4-10.4) fL Neut % (Auto) % Lymph % (Auto) % [place] % (Auto) % Eos % (Auto) % Baso % (Auto) % Neut # (Auto) (1.8-7.7) 10^3/u L Lymph # (Auto) (0.8-4.8) 10^3/u L [place] # (Auto) (0.2-0.9) 10^3/u L Eos # (Auto) (0.0-0.8) 10^3/u L Baso # (Auto) (0.0-0.1) 10^3/u L Nucleated RBC % (a uto) % Nucleated RBCs # /100WBC D-Dimer (0-0.59) ug/mIFE U Sodium (136-145) mmol/L Potassium (3.5-5.1) mmol/L Chloride (98-107) mmol/L Carbon Dioxide (22-29) mmol/L Anion Gap (5-19) BUN (6-20) mg/dL Creatinine (0.5-0.9) mg/dL GFR Calculation (90-130) mL/min Glucose (65-115) mg/dL Calculated Osmolal ity (285-295) mOsm/k g Calcium (8.5-10.5) mg/dL Total Bilirubin (0.15-1.2) mg/dL AST (0-32) U/L ALT (0-33) U/L Alkaline Phosphata se (35-105) IU/L Troponin T Baselin e 6 (0-10) ng/L Total Protein (6.6-8.7) g/dL Albumin (3.5-5.2) g/dL Globulin (1.3-4.6) g/dL Lipase 70 H (13-60) U/L Imaging Data^: CXR: Attestation: I personally reviewed and interpreted this imaging study as follows: My impression: no acute abnormality CT Chest: Attestation: I personally reviewed and interpreted this imaging study as follows: Radiologist's impression: [facility] ([facility])[address] [address] [address] Scan Report Signed Patient: Glendy Cruz Unit #: [id number] : 1965 Age/Sex: 55 / F ADM Date: 09/29/20 Loc: ER Room/Bed: Attending Dr: Ordering Provider/Ordering MD: Elvin Quinn MD Date of Service: 09/29/20 Procedure(s): CT angio chest PE protcl [id number] Accession Number(s): [id number] Report Number: [id number] PROCEDURE INFORMATION: Exam: CT Angiography Chest With Contrast Exam date and time: 09/29/2020 6:40 PM Age: 55 years old Clinical indication: Pain; Shortness of breath; Chest pressure; Additional info: SOB TECHNIQUE: Imaging protocol: Computed tomographic angiography of the chest with intravenous contrast. 3D rendering (Not supervised by radiologist): MIP and/or 3D reconstructed images were created by the technologist. Radiation optimization: All CT scans at this facility use at least one of these dose optimization techniques: automated exposure control; mA and/or kV adjustment per patient size (includes targeted exams where dose is matched to clinical indication); or iterative reconstruction. Contrast material: OMNI 350; Contrast volume: 95 ml; Contrast route: INTRAVENOUS (IV); COMPARISON: CR XR chest 1V portable [id number] 09/29/2020 5:36 PM RADIATION DOSE METRICS: Total DLP (mGy-cm): 530.85 FINDINGS: Tubes, catheters and devices: Incidental note is made of multiple collateral vessels in the right chest and along the right chest wall compatible with probable high-pressure from the injection. Pulmonary arteries: There is no pulmonary embolus. Aorta: Unremarkable. No aortic aneurysm. No aortic dissection. Veins: The superior vena cava is widely patent without any stenosis or narrowing. Lungs: There is bibasilar interstitial and ground-glass opacity in the lungs compatible with pneumonitis, edema and/or atelectasis. There is no lobar consolidation. Pleural space: Unremarkable. No pneumothorax. No pleural effusion. Heart: Unremarkable. No cardiomegaly. No pericardial effusion. Lymph nodes: Unremarkable. No enlarged lymph nodes. Bones/joints: Unremarkable. No acute fracture. Soft tissues: Unremarkable. Other findings: The exam is limited by respiratory motion artifact. CT/CT angio chest PE protcl [id number] IMPRESSION: 1. There is no pulmonary embolus. 2. There is bibasilar interstitial and ground-glass opacity in the lungs compatible with pneumonitis, edema and/or atelectasis. EKG Data^: EKG 1: Attestation: I personally reviewed and interpreted this EKG as follows: EKG interpretation date: 09/29/20 EKG interpretation time: 17:01 Interpretation: nsr hr [address] or t wave abnormalitie qrs 85 qtc 383 EKG 2: Attestation: I personally reviewed and interpreted this EKG as follows: EKG interpretation date: 09/29/20 EKG interpretation time: 19:23 Interpretation: nsr hr [address] or t wave abnormalities qrs 91 qtc 418 Discharge Plan Discharge Patient Disposition: Home Clinical Impression: Atypical chest pain, COVID-19 Condition: Stable Prescriptions: No Action nitroglycerin 0.4 mg tablet, sublingual 0.4 mg SUBLINGUAL Q5M PRN (Reason: chest pain) Qty: 25 RF: 1 multivitamin [Multiple Vitamins] Tablet 1 tab PO DAILY@0900 RF: 0 [place]-3 350 mg-235 mg- 90 mg-597 mg Capsule,Delayed Release(Dr/Ec) 1 cap PO DAILY@0900 RF: 0 grape seed extract 1 tab PO DAILY@0900 RF: 0 vitamin E 1 tab PO DAILY@0900 RF: 0 albuterol sulfate [Ventolin HFA] 90 mcg/actuation HFA aerosol inhaler 2 inh inhalation Q6H PRN (Reason: shortness of breath or wheezing) Qty: 8 RF: 0 clopidogrel 75 mg tablet 75 mg PO DAILY@0900 RF: 0 Aspir-81 81 mg Tablet,Delayed Release (Dr/Ec) 81 mg PO DAILY@0900 RF: 0 Vitamin C 1 tab PO DAILY@0900 RF: 0 Vitamin D3 1 tab PO DAILY@0900 RF: 0 zinc 1 tab PO DAILY@0900 RF: 0 Discharge Orders: Discharge ED (Routine); Ordered 09/29/20 Ordered By: Elvin Quinn Discharge Diet: Advance as tolerated Discharge Activity: Resume usual activity Patient Instructions: Chest Pain (ED) Coding Level of Care Code ED Fender Mechanic Apprentice for Chg Fwd Exam Comprehensive
[2020-09-29 17:53] LABS: Basophils % 0.5 %; Eosinophils # 0.1 10^3/uL (0.0-0.8); Eosinophils % 1.3 %; Hematocrit 39.8 % (37.0-47.0); Hemoglobin 12.9 g/dL (11.5-15.3); Lymphocytes # 2.1 10^3/uL (0.8-4.8); Mean Corpuscular HGB Conc 32.4 g/dL (30.0-36.0); Mean Corpuscular Hemoglobin 29.5 pg (28.0-34.0); Mean Corpuscular Volume 90.9 fL (81-99); Monocytes # 0.5 10^3/uL (0.2-0.9); Monocytes % 8.8 %; Neutrophils # 3.36 10^3/uL (1.8-7.7); Neutrophils % 54.6 %; Nucleated Red Blood Cells % 0 %; Platelet Count 312 10^3/cmm (130-400); Red Blood Count 4.38 10^6/uL (4.1-5.3); Red Cell Distribution Width 13.6 % (12.1-15.1); White Blood Count 6.2 10^3/uL (4.0-10.0)
[2020-09-29 18:14] LABS: D Dimer 1.99 ug/mIFEU (0-0.59)
[2020-09-29 18:19] LABS: Alanine Aminotransferase 39 U/L (0-33); Albumin Level 3.7 g/dL (3.5-5.2); Alkaline Phosphatase 63 IU/L (35-105); Anion Gap 13.4 (5-19); Aspartate Amino Transferase 21 U/L (0-32); Blood Urea Nitrogen 9 mg/dL (6-20); Calcium 8.9 mg/dL (8.5-10.5); Carbon Dioxide 24 mmol/L (22-29); Chloride 103 mmol/L (98-107); Creatinine Clr Calc Pharmacy 95.8533; Globulin 2.1 g/dL (1.3-4.6); Glucose 104 mg/dL (65-115); Osmolality Calculated 281 mOsm/kg (285-295); Potassium 4.4 mmol/L (3.5-5.1); Sodium 136 mmol/L (136-145); Total Bilirubin 0.2 mg/dL (0.15-1.2); Total Protein 5.8 g/dL (6.6-8.7)
[2020-09-29 18:20] LABS: Troponin(5th) Baseline 6 ng/L (0-10)
--- NOTE | 2020-09-29 18:21 | CTR_ITS ---
PROCEDURE INFORMATION: Exam: CT Angiography Chest With Contrast Exam date and time: 09/29/2020 6:40 PM Age: 55 years old Clinical indication: Pain; Shortness of breath; Chest pressure; Additional info: SOB TECHNIQUE: Imaging protocol: Computed tomographic angiography of the chest with intravenous contrast. 3D rendering (Not supervised by radiologist): MIP and/or 3D reconstructed images were created by the technologist. Radiation optimization: All CT scans at this facility use at least one of these dose optimization techniques: automated exposure control; mA and/or kV adjustment per patient size (includes targeted exams where dose is matched to clinical indication); or iterative reconstruction. Contrast material: OMNI 350; Contrast volume: 95 ml; Contrast route: INTRAVENOUS (IV); COMPARISON: CR XR chest 1V portable [id number] 09/29/2020 5:36 PM RADIATION DOSE METRICS: Total DLP (mGy-cm): 530.85 FINDINGS: Tubes, catheters and devices: Incidental note is made of multiple collateral vessels in the right chest and along the right chest wall compatible with probable high-pressure from the injection. Pulmonary arteries: There is no pulmonary embolus. Aorta: Unremarkable. No aortic aneurysm. No aortic dissection. Veins: The superior vena cava is widely patent without any stenosis or narrowing. Lungs: There is bibasilar interstitial and ground-glass opacity in the lungs compatible with pneumonitis, edema and/or atelectasis. There is no lobar consolidation. Pleural space: Unremarkable. No pneumothorax. No pleural effusion. Heart: Unremarkable. No cardiomegaly. No pericardial effusion. Lymph nodes: Unremarkable. No enlarged lymph nodes. Bones/joints: Unremarkable. No acute fracture. Soft tissues: Unremarkable. Other findings: The exam is limited by respiratory motion artifact. CT/CT angio chest PE protcl [id number] IMPRESSION: 1. There is no pulmonary embolus. 2. There is bibasilar interstitial and ground-glass opacity in the lungs compatible with pneumonitis, edema and/or atelectasis. Radiation Dose CTDIVOL = (mGy): DLP = 530.85 (mGy-cm)
[2020-09-29 18:34] LABS: Lipase 70 U/L (13-60)
[2020-09-29] MEDS: iohexol 350 mg/mL 100 mL Btl IV (18:57)
--- NOTE | 2020-09-29 19:15 | ECG_ITS ---
[facility] Test Date: 2020-09-29 Pat Name: Glendy Cruz Department: Room: Gender: Female Marriage And Family Therapist: : 1965 Requested By: Malcolm Bolton Order Number: [id number] Wicho MD: Fabi Iverson M.D. Measurements Intervals Randle Rate: 67 P: 30 IA: 123 QRS: 45 QRSD: 91 T: 50 QT: 402 QTc: 427 Interpretive Statements SINUS RHYTHM Compared to ECG 09/29/2020 17:01:33 Short IA interval no longer present T-wave abnormality no longer present Electronically Signed On 09-29-2020 20:24:01 LUBE WORKER by Fabi Iverson M.D. [id number]
[2020-09-29 19:21] VITALS: BP 115/82; PULSE 74; RESP 15; O2SAT 98
[2020-09-29 19:50] VITALS: BP 118/91; PULSE 73; RESP 14; O2SAT 97
== END 2020-09-29 19:50 | disposition home or self-care (01) ==
PROVIDERS: Family Medicine; Emergency Provider Emergency Medicine
DX: R07.89 Other chest pain (principal); U07.1 COVID-19; Z79.82 Long term (current) use of aspirin; Z79.02 Long term (current) use of antithrombotics/antiplatelets
CPT/HCPCS: 12345; 71045; 71275; 80053; 83690; 84484; 85025; 85378; 93005; 99282; 99284; Q9967

== ENCOUNTER 2021-12-10 17:30 | Emergency (ER) | payer SELFPAY ==
[2021-12-10] VITALS (9 sets, daily range): BP systolic 103–151; BP diastolic 55–89; PULSE 62–96; RESP 12–18; O2SAT 95–100
--- NOTE | 2021-12-10 18:20 | CTR_ITS ---
PROCEDURE INFORMATION: Exam: CT Head Without Contrast Exam date and time: 12/10/2021 6:40 PM Age: 56 years old Clinical indication: Dizziness; Additional info: Weakness, dizzy TECHNIQUE: Imaging protocol: Computed tomography of the head without contrast. Radiation optimization: All CT scans at this facility use at least one of these dose optimization techniques: automated exposure control; mA and/or kV adjustment per patient size (includes targeted exams where dose is matched to clinical indication); or iterative reconstruction. COMPARISON: CT head wo con* [id number] 05/07/2018 2:55 PM RADIATION DOSE METRICS: Total DLP (mGy-cm): 854.44 FINDINGS: Brain: Normal. No hemorrhage or evidence of acute infarction. No mass effect. Cerebral ventricles: No ventriculomegaly. Paranasal sinuses: Visualized sinuses are unremarkable. No fluid levels. Mastoid air cells: Visualized mastoid air cells are well aerated. Bones/joints: Unremarkable. No acute fracture. Soft tissues: Unremarkable. CT/CT head wo con* [id number] IMPRESSION: No acute intracranial abnormality.
--- NOTE | 2021-12-10 18:20 | ED_ITS ---
HPI - Weakness General: Chief complaint: Weakness Stated complaint: SOB/DIZZY Time Seen by Provider: 12/10/21 17:43 Source: patient and family () Mode of arrival: EMS Limitations: no limitations History of Present Illness: Patient is a 56-year-old female presents to ED today along with her for concerns of generalized weakness, drowsiness, not feeling like herself . states just a few hours prior patient was completely at her baseline. She states she took a larger than normal amount of a CBD gummy and she states approximately 20 minutes following this ingestion she felt outside my body and woozy headed . She stated she started having some visual changes, felt weak, and drowsy. Patient feels like her eyes are heavy and reportedly is not able to open them. She is not having any pain anywhere. He denies feeling short of breath or having palpitations. She feels slightly nauseous but has not had any episodes of emesis. She has no abdominal pain. No headache, neck pain, or back pain. MD Complaint: generalized weakness Onset (ago): hour(s) Duration: constant Location: generalized Migration: none Relieving factors: none Associated symptoms: Reports nausea; Denies chest pain, chills, confusion, fever(s), headache(s), syncope or vomiting Review of Systems Const: Denies: fever(s), chills, body aches, fatigue or malaise Eyes: Reports: change in vision and dry eyes; Denies: photophobia, eye discomfort, eye discharge, floaters or seeing flashes ENMT: Reports: other (dry mouth); Denies: throat pain, odynophagia, nasal discharge or nasal congestion Card: Denies: chest pain, palpitations, irregular heart rhythm, edema, syncope or pre-syncope Resp: Denies: dyspnea, productive cough, non-productive cough or chest congestion GI: Reports: nausea; Denies: abdominal pain, vomiting or diarrhea : Denies: flank pain Musc: Denies: neck pain, back pain, extremity pain or joint pain Skin/Breast: Denies: rash Neuro: Reports: lack of coordination, difficulty walking and dizziness; Denies: headache(s), numbness in extremities, frequent falls, confusion, Slurred speech present, seizure-like activity, involuntary movements or restless legs [facility] ED PFSH: Medical History Family history of coronary artery disease occurring prior to 55 years of age Trigeminal neuralgia Family History Mother Stroke Father Stroke Sister CAD (coronary artery disease), Onset Age: 50 stent Social History Smoking and tobacco status: former smoker Alcohol intake: never Physical Exam Const: COMMON NORMALS: average body habitus, patient oriented x3, alert and well nourished ORIENTATION/CONSCIOUSNESS: Yes awake, Yes oriented to person, Yes oriented to place and Yes oriented to time OTHER: pt is lying in bed with her eyes closed, she is not very cooperative with exam (i.e refusing to open her eyes) but can follow commands when sternly and repetitively prompted HENMT: COMMON NORMALS: normocephalic, atraumatic and Normal external nose present HEAD & SCALP: normal to inspection, normocephalic and atraumatic FACE & SINUS: normal facial exam NOSE: Normal external nose present Eye: COMMON NORMALS: Equal, round and reactive pupils present and EOMs intact bilaterally GENERAL EYE: normal light reflex PUPIL: Yes Equal, round and reactive pupils present DIRECT OPHTHALMOSCOPY: Yes normal light reflex OTHER: slight injection Neck/C-Spine: COMMON NORMALS: full ROM, no lymphadenopathy and no meningeal signs Resp: COMMON NORMALS: normal respiratory effort and clear to auscultation bilaterally AUSCULTATION: clear to auscultation bilaterally Cardio: COMMON NORMALS: regular rate and regular rhythm RATE: regular rate RHYTHM: regular rhythm GI: COMMON NORMALS: Normal to inspection, nondistended, normoactive bowel sounds present, Soft to palpation, non-tender and no masses PALPATION: Yes Soft to palpation Back/Pelvis: COMMON NORMALS: thoracic and lumbar spine normal to inspection, no thoracic nor lumbar tenderness and thoraco-lumbar ROM normal Extremity: COMMON NORMALS: normal to inspection and full ROM GENERAL: Yes normal exam except as noted Neuro: SARITHA COMA SCALE: document GCS findings Saritha coma scale eye opening: Spontaneous [place] coma scale verbal response: Orientated Saritha coma scale motor response: Obey commands Saritha coma scale total score: 15 COMMON NORMALS: patient oriented x3, CN's II-XII intact bilaterally and moves all extremities SENSORIUM/ORIENTATION: Yes alert, Yes oriented to person, Yes oriented to place and Yes oriented to time MENINGEAL SIGNS: Yes no meningeal signs GAIT: Yes Unable to assess gait Skin: COMMON NORMALS: no rashes or lesions noted GENERAL SKIN EXAM: no rashes or lesions noted Course Vital Signs: Vital signs: Vital Signs Pulse Rate 66 12/10/21 20:30 Respiratory Rate 18 12/10/21 20:30 Blood Pressure 126/70 12/10/21 20:30 Pulse Oximetry 96 12/10/21 20:30 MDM - Weakness Medical Decision Making Patient upon re-examination is feeling much better. She is lying on the bed with her eyes open and articulating well. She still states she feels drowsy and weak. She has no acute neurologic deficits. NIHSS of 0. Patient symptoms started 20 minutes after ingestion of a CBD gummy. Patient's vital signs are stable. Her blood work is unremarkable. Her UDS is positive for THC. Head CT is negative. We discussed how most of the CBD gummies do not have FDA regulation up to 20% of them have been found to contain THC component. Patient states she feels comfortable going home and resting at this time. Strict return to ED precautions given to patient and her who voiced understanding. Lab Data : 12/10/21 19:15 12/10/21 19:[address] 12/10/21 18:20 IMPRESSION: No acute intracranial abnormality. Laboratory Results WBC 4.6 10^3/uL (4.0-10.0) 12/10/21 19:15 RBC 4.37 10^6/uL (4.1-5.3) 12/10/21 19:15 Hgb 13.4 g/dL (11.5-15.3) 12/10/21 19:15 Hct 41.5 % (37.0-47.0) 12/10/21 19:15 MCV 95.0 fl (81-99) 12/10/21 19:15 MCH 30.7 pg (28.0-34.0) 12/10/21 19:15 MCHC 32.3 g/dL (30.0-36.0) 12/10/21 19:15 RDW 12.5 % (12.1-15.1) 12/10/21 19:15 Plt Count 179 10^3/cmm (130-400) 12/10/21 19:15 MPV 11.2 fL (7.4-10.4) H 12/10/21 19:15 Neut % (Auto) 67.2 % 12/10/21 19:15 Lymph % (Auto) 23.7 % 12/10/21 19:15 [place] % (Auto) 7.5 % 12/10/21 19:15 Eos % (Auto) 0.7 % 12/10/21 19:15 Baso % (Auto) 0.7 % 12/10/21 19:15 Neut # (Auto) 3.06 10^3/uL (1.8-7.7) 12/10/21 19:15 Lymph # (Auto) 1.1 10^3/uL (0.8-4.8) 12/10/21 19:15 [place] # (Auto) 0.3 10^3/uL (0.2-0.9) 12/10/21 19:15 Eos # (Auto) 0.0 10^3/uL (0.0-0.8) 12/10/21 19:15 Baso # (Auto) 0.0 10^3/uL (0.0-0.1) 12/10/21 19:15 Nucleated RBC % (auto) 0 % 12/10/21 19:15 Nucleated RBCs # 0.0 /100WBC 12/10/21 19:15 Sodium 140 mmol/L (136-145) 12/10/21 19:15 Potassium 4.5 mmol/L (3.5-5.1) 12/10/21 19:15 Chloride 105 mmol/L (98-107) 12/10/21 19:15 Carbon Dioxide 20 mmol/L (22-29) L 12/10/21 19:15 Anion Gap 19.5 (5-19) H 12/10/21 19:15 BUN 16 mg/dL (6-20) 12/10/21 19:15 Creatinine 0.7 mg/dL (0.5-0.9) 12/10/21 19:15 GFR Calculation 85.9 mL/min (90-130) L 12/10/21 19:15 Glucose 113 mg/dL (65-115) 12/10/21 19:15 Calculated Osmolality 292 mOsm/kg (285-295) 12/10/21 19:15 Calcium 9.4 mg/dL (8.5-10.5) 12/10/21 19:15 Magnesium 2.0 mg/dL (1.7-2.3) 12/10/21 19:15 Total Bilirubin 0.2 mg/dL (0.15-1.2) 12/10/21 19:15 AST 30 U/L (0-32) 12/10/21 19:15 ALT 20 U/L (0-33) 12/10/21 19:15 Alkaline Phosphatase 64 IU/L (35-105) 12/10/21 19:15 Total Protein 6.6 g/dL (6.6-8.7) 12/10/21 19:15 Albumin 4.2 g/dL (3.5-5.2) 12/10/21 19:15 Globulin 2.4 g/dL (1.3-4.6) 12/10/21 19:15 Urine Color Yellow (Yellow) 12/10/21 20:39 Urine Appearance Clear (CLEAR) 12/10/21 20:39 Urine pH 8 (5-7) H 12/10/21 20:39 Ur Specific [place] 1.010 (1.005-1.030) 12/10/21 20:39 Urine Protein Neg (Negative) 12/10/21 20:39 Urine Glucose (UA) Norm (Normal) 12/10/21 20:39 Urine Ketones Negative (Negative) 12/10/21 20:39 Urine Blood Neg (Negative) 12/10/21 20:39 Urine Nitrate Negative (Negative) 12/10/21 20:39 Urine Bilirubin Neg (Negative) 12/10/21 20:39 Prot Sulfosalicylic Acd Negative (Negative) 12/10/21 20:39 Urine Urobilinogen Norm mg/dL (Negative) 12/10/21 20:39 Ur Leukocyte Esterase Negative (Negative) 12/10/21 20:39 Urine Opiates Screen Negative ng/mL (Negative) 12/10/21 20:39 Ur Barbiturates Screen Negative ng/mL (Negative) 12/10/21 20:39 Ur Phencyclidine Scrn Negative ng/mL (Negative) 12/10/21 20:39 Ur Amphetamines Screen Negative ng/mL (Negative) 12/10/21 20:39 U Benzodiazepines Scrn Negative ng/mL (Negative) 12/10/21 20:39 Urine Cocaine Screen Negative ng/mL (Negative) 12/10/21 20:39 U Marijuana (THC) Screen Positive ng/mL (Negative) H 12/10/21 20:39 Discharge Plan Discharge Patient Disposition: Home Clinical Impression: Accidental cannabis overdose Qualifiers: Encounter type: initial encounter Qualified Code(s): T40.711A - Poisoning by cannabis, accidental (unintentional), initial encounter Condition: Stable Prescriptions: No Action nitroglycerin 0.4 mg tablet, sublingual 0.4 mg SUBLINGUAL Q5M PRN (Reason: chest pain) Qty: 25 1RF Rx Instructions: until response; do not exceed 3 doses per episode multivitamin [Multiple Vitamins] Tablet 1 tab PO DAILY@0900 0RF vitamin E 100 unit Capsule 100 unit PO DAILY 0RF grape seed extract 50 mg Capsule 50 mg PO DAILY 0RF Rx Instructions: give with food (meal/snack) [place]-3 350 mg-235 mg- 90 mg-597 mg Capsule,Delayed Release(Dr/Ec) 1 cap PO DAILY@0900 0RF aspirin [Aspir-81] 81 mg Tablet,Delayed Release (Dr/Ec) 81 mg PO DAILY@0900 0RF ascorbic acid (vitamin C) [Vitamin C] 500 mg Tablet 500 mg PO DAILY 0RF zinc 50 mg Tablet 50 mg PO DAILY 0RF cholecalciferol (vitamin D3) [Vitamin D3] 25 mcg (1,000 unit) Capsule 25 mcg PO DAILY 0RF Probiotic 3 billion cell Capsule 3,000 mmu cells PO DAILY 0RF Rx Instructions: administer with a meal Calcium Magnesium 500 mg calcium -250 mg Tablet 2 tab PO DAILY 0RF turmeric 400 mg Capsule 400 mg PO DAILY 0RF Discharge Orders: Discharge ED (Routine); Ordered 12/10/21 Ordered By: Michelle Mcgurie Coding Level of Care Code ED Correctional Counselor for Chg Fwd Exam Comprehensive
[2021-12-10] MEDS: sodium chloride 0.9% 1,000 ML 999 ML IV (19:19)
[2021-12-10 19:24] LABS: Basophils % 0.7 %; Eosinophils % 0.7 %; Hematocrit 41.5 % (37.0-47.0); Hemoglobin 13.4 g/dL (11.5-15.3); Lymphocytes # 1.1 10^3/uL (0.8-4.8); Lymphocytes % 23.7 %; Mean Corpuscular HGB Conc 32.3 g/dL (30.0-36.0); Mean Corpuscular Hemoglobin 30.7 pg (28.0-34.0); Mean Platelet Volume 11.2 fL (7.4-10.4); Monocytes # 0.3 10^3/uL (0.2-0.9); Monocytes % 7.5 %; Neutrophils # 3.06 10^3/uL (1.8-7.7); Neutrophils % 67.2 %; Nucleated Red Blood Cells % 0 %; Platelet Count 179 10^3/cmm (130-400); Red Blood Count 4.37 10^6/uL (4.1-5.3); Red Cell Distribution Width 12.5 % (12.1-15.1); White Blood Count 4.6 10^3/uL (4.0-10.0)
[2021-12-10 19:50] LABS: Alanine Aminotransferase 20 U/L (0-33); Albumin Level 4.2 g/dL (3.5-5.2); Alkaline Phosphatase 64 IU/L (35-105); Blood Urea Nitrogen 16 mg/dL (6-20); Calcium 9.4 mg/dL (8.5-10.5); Carbon Dioxide 20 mmol/L (22-29); Chloride 105 mmol/L (98-107); Globulin 2.4 g/dL (1.3-4.6); Glomerular Filtration Rate 85.9 mL/min (90-130); Glucose 113 mg/dL (65-115); Osmolality Calculated 292 mOsm/kg (285-295); Sodium 140 mmol/L (136-145); Total Bilirubin 0.2 mg/dL (0.15-1.2); Total Protein 6.6 g/dL (6.6-8.7)
[2021-12-10 19:51] LABS: Anion Gap 19.5 (5-19); Aspartate Amino Transferase 30 U/L (0-32); Potassium 4.5 mmol/L (3.5-5.1)
[2021-12-10 20:47] LABS: Add Urine Microscopic? NO; Charge for UA Resulting for Rev
[2021-12-10] MEDS: ondansetron 2 mg/ML SDV 2 mL 4 MG IVP (20:56)
[2021-12-10 21:03] LABS: Urine Appearance Clear (CLEAR); Urine Color Yellow (Yellow); pH Urine 8 (5-7)
[2021-12-10 21:04] LABS: Bilirubin Urine Neg (Negative); Blood Urine Neg (Negative); Glucose Urine UA Norm (Normal); Ketones Urine Negative (Negative); Leukocyte Esterase Urine Negative (Negative); Nitrate Urine Negative (Negative); Protein Urine Neg (Negative); Sulfosalicylic Acid Urine Negative (Negative); Urobilinogen Urine Norm (Negative)
[2021-12-10 21:05] LABS: Amphetamines Screen Urine Negative (Negative); Barbiturates Screen Urine Negative (Negative); Benzodiazepines Screen Urine Negative (Negative); Cocaine Screen Urine Negative (Negative); Opiate Screen Urine Negative (Negative); PCP Screen Urine Negative (Negative); THC Screen Urine Positive (Negative)
== END 2021-12-10 21:40 | disposition home or self-care (01) ==
PROVIDERS: Emergency Provider Physician Assistant
DX: T40.711A Poisoning by cannabis, accidental (unintentional), initial encounter (principal); R53.1 Weakness; R42 Dizziness and giddiness; Z87.891 Personal history of nicotine dependence
CPT/HCPCS: 70450; 80053; 80306; 81003; 83735; 85025; 96361; 96374; 99284; J2405; J7030

== ENCOUNTER 2025-05-06 12:38 | Outpatient (CLI) | payer OTHER, SELFPAY ==
--- NOTE | 2025-05-06 | ECG_ITS ---
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 Baseline heart rate was 66 beats per minute. Baseline blood pressure was 123/77 millimeters of mercury. Target heart rate was 159 beats per minute. Maximum heart rate achieved was 145, which was 91 % of the target heart rate. Maximum blood pressure was 179/100 millimeters of mercury. Total exercise time was 8 minutes 16 seconds. Maximum METs achieved was 10.2, maximum VO2 was 35.7. The reason for ending the test was maximum effort achieved. The patient complained of shortness of breath during the stress test, which then resolved at the end of the test. ELECTROCARDIOGRAM: BASELINE: Showed sinus rhythm, normal axis, no significant ST-T changes at the baseline noted. EXERCISE: At the peak exercise level, no significant ST-T changes suggestive of ischemia noted. RECOVERY: During the recovery period, heart rate dropped appropriately. No significant ST-T changes in the recovery suggestive of ischemia noted. CONCLUSION: 1. Exercise capacity good. 2. Heart rate response was appropriate. 3. Blood pressure response was hypertensive. 4. Symptoms not suggestive of ischemia. 5. Electrocardiogram portion of the stress test was not suggestive of ischemia. Electronically Signed On 06-01-2025 15:12:40 CDT by VIRGEN ALVARADO [id number]
[2025-05-06 13:00] VITALS: BMI 24.4
[2025-05-06 13:27] VITALS: BP 133/74; PULSE 80
== END 2025-05-06 12:39 | disposition home or self-care (01) ==
LOC: CDL 12:43
PROVIDERS: PCP Family Medicine; Visit Provider Nurse Practitioner Family
DX: R07.89 Other chest pain (principal); R42 Dizziness and giddiness; R93.1 Abnormal findings on diagnostic imaging of heart and coronary circulation
CPT/HCPCS: 93017

== ENCOUNTER 2025-05-08 12:58 | Outpatient (CLI) | payer OTHER, SELFPAY ==
--- NOTE | 2025-05-08 13:02 | MM_ITS ---
WS: [id number] BILATERAL 3D TOMOSYNTHESIS DIGITAL SCREENING MAMMOGRAPHY WITH CAD CLINICAL INFORMATION: SCREENING HISTORY: Screening mammogram. No current complaints. COMPARISON: 2016 TECHNIQUE: Bilateral CC and MLO views. FINDINGS: Scattered fibroglandular densities bilaterally. No suspicious focal mass, asymmetry, calcifications, or architectural distortion. No evidence of malignancy. MM/MM scr BI tomosynthesis [id number] IMPRESSION: DENSITY: There are scattered areas of fibroglandular density. BI-RADS: 1 - Negative. FOLLOW UP: 1 Year Follow-up Recommend return to annual screening mammography.
== END 2025-05-08 12:59 | disposition home or self-care (01) ==
LOC: RAD 12:59
PROVIDERS: PCP Family Medicine; Visit Provider Family Medicine
DX: Z12.31 Encounter for screening mammogram for malignant neoplasm of breast (principal); R92.323 Mammographic fibroglandular density, bilateral breasts
CPT/HCPCS: 77063; 77067

== ENCOUNTER 2025-05-30 12:49 | Outpatient (CLI) | payer OTHER, SELFPAY ==
--- NOTE | 2025-05-30 12:55 | MR_ITS ---
WS: [id number] MRI BRAIN WITHOUT CONTRAST HISTORY: DIZZINESS/FAMILY HX OF CVA/STROKE/HEADACHE COMPARISON: CT head 12/10/2021 TECHNIQUE: Diffusion imaging, multiplanar T1, T2 and FLAIR imaging obtained. No evidence for acute infarct or hemorrhage. Hebert-white matter differentiation is normal. No prior infarcts. Minimal small vessel disease. No hippocampal atrophy. Very mild bilateral frontal lobe atrophy. Ventricles and extra-axial spaces are normal. No inferior displacement of cerebellar tonsils. The sella turcica and pituitary gland are unremarkable. Dural venous sinuses and augustine of [place] demonstrate no abnormality on this unenhanced studies. Paranasal sinuses: Clear. Mastoid air cells: Normal. Calvarium and scalp: Intact. MR/MR head wo con* [id number] IMPRESSION: 1. No acute infarct or hemorrhage. 2. No hippocampal atrophy. 3. Very mild bilateral frontal lobe atrophy. 4. Minimal small vessel disease.
== END 2025-05-30 12:50 | disposition home or self-care (01) ==
LOC: RAD 12:50
PROVIDERS: PCP Family Medicine; Visit Provider Family Medicine
DX: E42 Marasmic kwashiorkor (principal); R51.9 Headache, unspecified; Z82.3 Family history of stroke
CPT/HCPCS: 70551

== ENCOUNTER 2025-06-11 10:05 | Day surgery (SDC) | payer OTHER, SELFPAY ==
[2025-06-11 10:31] VITALS: BP 138/94; PULSE 70; RESP 18; TEMP 36.3; O2SAT 100
--- NOTE | 2025-06-11 10:50 | ANES.PREANE2 ---
Pre-Anesthetic Assessment Height/Weight: Height 1.65 m Weight 2.41 kg Temp Pulse Resp BP Pulse Ox O2 Del Method 97.4 F L 70 18 138/94 100 Room Air 06/11/25 10:31 06/11/25 10:31 06/11/25 10:31 06/11/25 10:31 06/11/25 10:06/11/25 10:31 Operation Date: 06/11/25 11:15 Proposed Procedures p EGD EGD with Biopsy [id number] G0105 Z12.11 R12(Not Applicable) - Tejas Camejo MD s Colonoscopy(Not Applicable) - Tejas Camejo MD Familial anesthetic complications: None Was Beta Maida taken within 24 hours: N/A Was Clonidine taken within 24 hours: N/A Last intake: Intake Last Liquid Date 06/10/25 Last Liquid Time 22:00 Last Solid Date 06/09/25 Social No alcohol and No tobacco Exam alert, oriented x 3, clear to auscultation bilaterally and regular rate & rhythm Airway Mallampati: Class III Dentition: full GI Gastroesophageal Reflux Disease Anesthetic Plan ASA status: 1 Anesthesia: MAC Risk of > 500 ml blood loss (7ml/kg in children): No Medications/Allergies Home Medications ?Medication ?Instructions ?Recorded ?Confirmed ?Last Taken ?Type multivitamin (Multiple Vitamins 1 tab PO DAILY@0912/17/19 06/06/25 06/06/25 History tablet) omega 3 350 mg-dha 235 mg-epa 90 1 cap PO DAILY@0900 12/17/19 06/11/25 12/10/21 History mg-fish oil 597 mg capsule,delay rel ([place]-3) vitamin E 100 unit capsule 100 unit PO DAILY 12/17/19 06/11/25 12/09/21 History nitroglycerin 0.4 mg sublingual 0.4 mg sublingual Q5M PRN chest 12/19/19 06/11/25 Unknown Rx tablet pain #25 tabs ascorbic acid (vitamin C) 500 mg 500 mg PO DAILY 09/29/20 06/11/25 12/10/21 History tablet (Vitamin C) cholecalciferol (vitamin D3) 25 25 mcg PO DAILY 09/29/20 06/11/25 12/10/21 History mcg (1,000 unit) capsule (Vitamin D3) zinc 50 mg tablet 50 mg PO DAILY 09/29/20 06/11/25 12/09/21 History calcium 500 mg 2 tab PO DAILY 12/10/21 06/11/25 12/09/21 History (carb,gluconate)-magnesium 250 mg (gluc,oxide) tablet (Calcium Magnesium) lactobacillus combination no.4 3 3,000 mmu cells PO DAILY 12/10/21 06/06/25 06/06/25 History billion cell capsule (Probiotic) turmeric 400 mg capsule 400 mg PO DAILY 12/10/21 06/11/25 12/10/21 History Allergies Allergy/AdvReac Type Severity Reaction Status Date / Time pentazocine (From Sunil) Allergy Unknown Unknown Verified 06/11/25 10:34 Current Medications Generic Name Dose Route Start Last Admin Trade Name Freq PRN Reason Stop Dose Admin Sodium Chloride 1,000 mls @ 15 mls/hr 06/11/25 10:21 06/11/25 10:40 Sodium Chloride 0.9% IV 06/12/25 10:20 15 mls/hr .Q24H PRN Administration COLONOSCOPY FLUIDS PFSH Anesthesia Medical History (Updated 05/06/25 @ 11:20 by Tejas Camejo MD) Family history of coronary artery disease occurring prior to 55 years of age Trigeminal neuralgia Family History Mother Stroke Father Stroke Sister CAD (coronary artery disease), Onset Age: 50 stent Social History Smoking and tobacco/nicotine status: never used tobacco/nicotine Alcohol intake: never Substance/Drug Use: never Data Anesthesia Cardiac Studies: Holter Monitor 04/29/25
--- NOTE | 2025-06-11 11:10 | W.PM.OPSFHP ---
Same Day Surgery H&P Indication for Procedure/HPI DATE OF PROCEDURE: June 11, 2025 CHIEF COMPLAINT/INDICATIONFOR SURGICAL PROCEDURE: heartburn, screening colonoscopy PREOP DIAGNOSIS: heartburn, screening colonoscopy PLANNED PROCEDURE: Operation Date: 06/11/25 11:15 Proposed Procedures p EGD EGD with Biopsy [id number] G0105 Z12.11 R12(Not Applicable) - Tejas Camejo MD s Colonoscopy(Not Applicable) - Tejas Camejo MD Medications/Allergies* Home Medications ?Medication ?Instructions ?Recorded ?Confirmed ?Type multivitamin (Multiple Vitamins 1 tab PO DAILY@89912/17/19 06/06/25 History tablet) omega 3 350 mg-dha 235 mg-epa 90 1 cap PO DAILY@89912/17/19 06/11/25 History mg-fish oil 597 mg capsule,delay rel ([place]-3) vitamin E 100 unit capsule 100 unit PO DAILY 12/17/19 06/11/25 History ascorbic acid (vitamin C) 500 mg 500 mg PO DAILY 09/29/20 06/11/25 History tablet (Vitamin C) cholecalciferol (vitamin D3) 25 25 mcg PO DAILY 09/29/20 06/11/25 History mcg (1,000 unit) capsule (Vitamin D3) zinc 50 mg tablet 50 mg PO DAILY 09/29/20 06/11/25 History calcium 500 mg 2 tab PO DAILY 12/10/21 06/11/25 History (carb,gluconate)-magnesium 250 mg (gluc,oxide) tablet (Calcium Magnesium) lactobacillus combination no.4 3 3,000 mmu cells PO DAILY 12/10/21 06/06/25 History billion cell capsule (Probiotic) turmeric 400 mg capsule 400 mg PO DAILY 12/10/21 06/11/25 History Allergies/Adverse Reactions Allergy/AdvReac Type Severity Reaction Status Date / Time pentazocine (From Talzahra) Allergy Unknown Unknown Verified 06/11/25 10:34 Current Medications: Generic Name Dose Route Start Last Admin Trade Name Freq PRN Reason Stop Dose Admin Sodium Chloride 1,000 mls @ 15 mls/hr 06/11/25 10:21 06/11/25 10:40 Sodium Chloride 0.9% IV 06/12/25 10:20 15 mls/hr .Q24H PRN Administration COLONOSCOPY FLUIDS Pertinent History/Comorbid Conditions* Medical History (Updated 05/06/25 @ 11:20 by Tejas Camejo MD) Family history of coronary artery disease occurring prior to 55 years of age Trigeminal neuralgia Family History (Updated 12/19/19 @ 13:23 by Fabi Iverson MD) CAD (coronary artery disease) Sister, Onset Age: 50 stent Stroke Mother Father Social History Smoking and tobacco/nicotine status: never used tobacco/nicotine Alcohol intake: never Substance/Drug Use: never Pertinent Exam Findings alert, oriented x 3, clear to auscultation bilaterally, regular rate & rhythm and procedure specific exam findings abdomen soft, nt, nd Recommendations Risks and benefits of procedure reviewed and Patient/family agree to proceed Surgery/Procedure today Coding Level of Care Code Acute Code for Chg Claudine
--- NOTE | 2025-06-11 11:50 | ANE.PACU2 ---
Inpatient post-anesthesia follow up: Airway intact: Yes Vital signs: Temperature 96.8 F Pulse Rate 58 Respiratory Rate 18 Blood Pressure 143/95 Pulse Oximetry 99 Oxygen Delivery Me thod Room Air Oxygen Flow Rate Fraction of Inspir ed Oxygen Hydration adequate: Yes Nausea and vomiting: No Pain level: 1 Mental status: Baseline
[2025-06-11 11:52] VITALS: BP 139/94; PULSE 70; RESP 16; TEMP 36; O2SAT 97
[2025-06-11 12:20] VITALS: BP 143/95; PULSE 58; RESP 18; O2SAT 99
== END 2025-06-11 12:53 | disposition home or self-care (01) ==
PROVIDERS: PCP Family Medicine; Visit Provider Student in an Organized Health Care Education/Training Program
PROC: 0DJ08ZZ Inspection of Upper Intestinal Tract, Via Natural or Artificial Opening Endoscopic (ICD-10-PCS; principal; 2025-06-11 11:15)
PROC: 0DJD8ZZ Inspection of Lower Intestinal Tract, Via Natural or Artificial Opening Endoscopic (ICD-10-PCS; CPT 45378; 2025-06-11 11:15)
DX: Z12.11 Encounter for screening for malignant neoplasm of colon (principal); R12 Heartburn; K29.50 Unspecified chronic gastritis without bleeding; K21.9 Gastro-esophageal reflux disease without esophagitis
CPT/HCPCS: 43239; 45378; 88305; J2250; J2704; J3010; J3490; J7030